=== PATIENT | female | born 1990 | race Hispanic/Latino ===

== ENCOUNTER 2017-02-06 22:33 | Emergency (ER) | payer SELFPAY ==
[2017-02-06] MEDS ORDERED: CHLORHEXIDINE GLUCONATE 4 % 15 ML UD TOP ONE (22:41)
[2017-02-06] MEDS ORDERED: LIDOCAINE 1% W/ EPINEPHRINE 20 ML VIAL INJ ONE ×2 (22:56→22:57)
--- NOTE | 2017-02-06 22:56 | ED.PDOC ---
History of Present Illness - General Chief Complaint: Skin/Abrasion/Tear Stated Complaint: Laceration R leg Time Seen by Provider: 02/06/17 22:54 Source: patient, RN notes reviewed, Vital Signs reviewed Exam Limitations: no limitations - History of Present Illness Initial Comments: Patient comes in with a large laceration to her R medial knee. She was taking out the trash and there was a piece of glass sticking out of the bag and it cut her leg. Lots of bleeding but she reports that is not unusual for her. Timing/Duration: just prior to arrival Severity: moderate Location: extremities Improving Factors: other - pressure Worsening Factors: movement Associated Symptoms: denies symptoms Allergies/Adverse Reactions: Allergies NO KNOWN ALLERGY Allergy (Unverified 04/26/13 02:54) Home Medications: Ambulatory Orders Ferrous Sulfate [Feosol Tab] 1 ea PO DAILY 11/16/14 Vitamin [Calna] 1 tab PO DAILY 11/16/14 Acetaminophen W/ Codeine [Tylenol W/ CODEINE #3] 1 - 2 ea PO Q8H PRN #16 Ibuprofen [Motrin Tab] 600 mg PO Q8H #20 tab 11/17/14 Norethindrone (Contraceptive) [Carri] 0.35 mg PO QAM #90 tab 11/17/14 Review of Systems - Review of Systems Constitutional: States: no symptoms reported Respiratory: States: no symptoms reported Cardiology: States: no symptoms reported Gastrointestinal/Abdominal: States: no symptoms reported Musculoskeletal: States: no symptoms reported Skin: States: see HPI All other Systems: No Change from Baseline Past Medical History (General) - Patient Medical History Hx Diabetes: No Hx Renal Disease: No - Social History Hx Substance Use: No - Female History Hx Last Menstrual Period: 02/13/14 Expected Date of Delivery:: 11/20/14 Family Medical History - Family History Mother Name: Karissa Jain Age (years): 43 Living Status: Still Living Hx Family Congestive Heart Failure: Yes - mgf Hx Family Hypertension: Yes - mgf Hx Family Diabetes: Yes - mgf Father Name: Elvin House Age (years): 47 Living Status: Still Living Hx Family Asthma: Yes Hx Family Congestive Heart Failure: Yes Hx Family Hypertension: Yes Hx Family Stroke: Yes Physical Exam - Physical Exam General Appearance: Alert, Comfortable, No apparent distress, Well Developed, Well Groomed, Well Hydrated, Well Nourished Respiratory: no respiratory distress Extremity: normal range of motion, non-tender, no pedal edema Neurologic: no motor/sensory deficits, alert, normal mood/affect, oriented x 3 Skin Exam: warm/dry, normal color Skin Problem Location: lower extremities - Medial aspect of R knee Skin Character: other - 9cm laceration, sm amout of bleeding, slightly curved Comments: Vital Signs - 24 hr 02/06/17 22:35 Temperature 99.3 F Pulse Rate [ 105 H monitor] Respiratory 16 Rate Blood Pressure 133/81 [Right Arm] O2 Sat by Pulse 100 Oximetry Procedures - Laceration/Wound Repair Right Medial Knee Wound Length (cm): 9 Wound's Depth, Shape: superficial, linear Wound Explored: no foreign body removed Betadine Prep?: No - Cleaned with Hibiclens and saline Anesthesia: Lidocaine w/ Epi Volume Anesthetic (cc's): 15 Wound Debrided: minimal Wound Repaired With: sutures Suture Size/Type: 3:0, prolene Number of Sutures: 14 Layer Closure?: No Sterile Dressing Applied?: Yes - With antibiotic ointment Splint Applied?: No Sling Applied?: No Departure - Departure Clinical Impression: Laceration of right knee without complication Qualifiers: Encounter type: initial encounter Qualified Code(s): S81.011A - Laceration without foreign body, right knee, initial encounter Time of Disposition: 23:42 Disposition: Discharge to Home or Self Care Condition: Good Departure Forms: ED Discharge - Pt. Copy, Patient Portal Self Enrollment Instructions: DI for Laceration Repair -- Simple Diet: resume usual diet Activity: increase activity as tolerated Referrals: Alex Mullins MD [Primary Care Provider] - 1-2 Weeks Home Medications: Ambulatory Orders Ferrous Sulfate [Feosol Tab] 1 ea PO DAILY 11/16/14 Vitamin [Calna] 1 tab PO DAILY 11/16/14 Acetaminophen W/ Codeine [Tylenol W/ CODEINE #3] 1 - 2 ea PO Q8H PRN #16 Ibuprofen [Motrin Tab] 600 mg PO Q8H #20 tab 11/17/14 Norethindrone (Contraceptive) [Carri] 0.35 mg PO QAM #90 tab 11/17/14 Additional Instructions: Keep wound dry X 48 hours No soaking wound Antibiotic ointment twice daily Suture removal in 7-10 days
[2017-02-06 23:04] VITALS: TEMP 99.3; O2SAT 100
[2017-02-06] MEDS ORDERED: NEOMYCIN-BACITRACIN-POLYMYXIN 0.9 GM UD TOP ONE ×2 (23:35→23:36)
[2017-02-06 23:55] VITALS: BP 129/73
== END 2017-02-06 23:54 | disposition home or self-care (01) ==
LOC: ER 22:33
DX: S81.011A Laceration without foreign body, right knee, initial encounter (principal); Z79.899 Other long term (current) drug therapy; W25.XXXA Contact with sharp glass, initial encounter; Y93.89 Activity, other specified; Y92.9 Unspecified place or not applicable